=== PATIENT | female | born 1995 | race Caucasian/White ===

== ENCOUNTER 2018-11-07 08:48 | Emergency (ER) | payer OTHER ==
[~2018-11-07] VITALS: Ht 160 cm; Wt 53.5 kg
== END 2018-11-07 16:04 | disposition home or self-care (01) ==
LOC: ER 08:48
DX: K52.9 Noninfective gastroenteritis and colitis, unspecified (principal)

== ENCOUNTER 2019-06-30 00:15 | Emergency (ER) | payer OTHER ==
[~2019-06-30] VITALS: Ht 160 cm; Wt 54.4 kg
== END 2019-06-30 01:26 | disposition home or self-care (01) ==
LOC: ER 00:15
DX: M54.5 Low back pain (principal)

== ENCOUNTER 2020-05-08 02:54 | Emergency (ER) | payer OTHER ==
[~2020-05-08] VITALS: Ht 160 cm; Wt 54.4 kg
[2020-05-08] MEDS ORDERED: LITIO (03:12)
[2020-05-08] MEDS ORDERED: DRAMAMINE LESS25 MG PO (04:38)
[2020-05-10] MEDS ORDERED: LITHOBID300 M1 (10:11)
== END 2020-05-08 04:46 | disposition home or self-care (01) ==
LOC: ER 02:54
DX: H81.03 Meniere's disease, bilateral (principal)

== ENCOUNTER → 2020-05-10 | Emergency (ER) | payer OTHER ==
[~2020-05-10] VITALS: Ht 160 cm; Wt 54.4 kg
[~2020-05-10] MED LIST: DRAMAMINE LESS25 MG PO; LITHOBID300 M1; LITIO
== END | disposition left against medical advice (07) ==
LOC: ER 09:55
DX: R45.851 Suicidal ideations (principal); F32.89 Other specified depressive episodes; F41.8 Other specified anxiety disorders; R53.81 Other malaise

== ENCOUNTER 2021-01-20 22:14 | Emergency (ER) | payer OTHER ==
[~2021-01-20] VITALS: Ht 160 cm; Wt 54.4 kg
[2021-01-21] MEDS ORDERED: MOTION RELIEF25 MG PO (04:56)
[2021-01-21] MEDS ORDERED: ONDANSETRON HCL4 MG PO (04:58)
== END 2021-01-21 05:07 | disposition home or self-care (01) ==
LOC: ER 22:14
DX: R42 Dizziness and giddiness (principal); R11.2 Nausea with vomiting, unspecified

== ENCOUNTER 2023-09-26 13:20 | Emergency (ER) | payer OTHER ==
[~2023-09-26] VITALS: Ht 210.8 cm; Wt 51.7 kg
[~2023-09-26 13:20] MED LIST changes: +MOTION RELIEF25 MG PO; +ONDANSETRON HCL4 MG PO
[2023-09-26 14:32] LABS: HEMATOCRIT 37.5 % (36.0-45.00); HEMOGLOBIN 12.4 g/dL (12.0-15.00); MEAN CELL VOLUME 81.6 fL (80.00-100.00); MEAN CORPUSCULAR HEMOGLOBIN 27.1 pg (27.00-32.0); MEAN CORPUSCULAR HGB CONC 33.2 g/dl (32.0-36.0); PLATELET COUNT 196 K/uL (150-450); RED BLOOD COUNT 4.59 M/uL (4.00-6.00); RED CELL DISTRIBUTION WIDTH 16.3 % (11.5-14.5)
[2023-09-26 14:56] LABS: CALCIUM 9.1 mg/dL (8.5-10.1); CREATININE SERUM 0.84 mg/dL (0.55-1.02); GFR 81.96; POTASSIUM 3.4 mEq/L (3.5-5.1)
[2023-09-26 16:38] LABS: PH,URINE 6.5 (5.0-8.0); URINE APPEARANCE Clear; URINE BILIRRUBIN Negative (NEGATIVE); URINE BLOOD Negative; URINE COLOR Yellow; URINE GLUCOSE Negative (NEGATIVE); URINE LEUKOCYTE Small; URINE NITRATE Negative; URINE PROTEIN Trace (NEGATIVE)
[2023-09-26 16:41] LABS: URINE BACTERIA 1639.1 uL (0.0-1933); URINE EPITHELIAL CELLS 62.1 uL (0.0-38.8); URINE RBC 5.4 uL (0.0-20.8); URINE WBC 44.8 uL (0.0-23.2)
[2023-09-26 16:54] LABS: URINE EPITHELIAL CELLS 0-4 /HPF
[2023-09-26] MEDS ORDERED: ZOFRAN8 MG PO (17:16)
[2023-09-26] MEDS ORDERED: PEPCID AC20 MG PO (17:16)
== END 2023-09-26 17:37 | disposition home or self-care (01) ==
LOC: ER 13:20
PROVIDERS: Emergency Medicine
DX: K52.9 Noninfective gastroenteritis and colitis, unspecified (principal); R11.2 Nausea with vomiting, unspecified

== ENCOUNTER → 2024-03-09 | Emergency (ER) | payer OTHER ==
[~2024-03-09] VITALS: Ht 160 cm; Wt 54.4 kg
[~2024-03-09] MED LIST changes: +0.9 % SODIUM CHLORIDE 1,000 ML IV STA; +CLONAZEPAM2 M1 PO; +FAMOTIDINE/PF 20 MG in 0.9 % SODIUM CHLORIDE 8 ML IV PUSH STA; +MEPERIDINE HCL/PF 25 MG/ML VIAL IV ONE; +ONDANSETRON HCL 2 MG/ML VIAL IV STA; +PEPCID AC20 MG PO; +RESTORIL30 M1 PO; +ZOFRAN8 MG PO
[2024-03-09 09:24] LABS: HEMATOCRIT 34.7 % (36.0-45.00); HEMOGLOBIN 11.3 g/dL (12.0-15.00); MEAN CELL VOLUME 76.4 fL (80.00-100.00); MEAN CORPUSCULAR HGB CONC 32.7 g/dl (32.0-36.0); PLATELET COUNT 203 K/uL (150-450); RED BLOOD COUNT 4.54 M/uL (4.00-6.00); RED CELL DISTRIBUTION WIDTH 16.6 % (11.5-14.5)
[2024-03-09 10:07] LABS: AMYLASE 78 U/L (25-115); LIPASE 36 U/L (13-75)
== END | disposition home or self-care (01) ==
LOC: ER 08:03
PROVIDERS: Emergency Medicine
DX: K52.89 Other specified noninfective gastroenteritis and colitis (principal); F32.89 Other specified depressive episodes